=== PATIENT | female | born 1975 | race American Indian/Alaskan Native ===

== ENCOUNTER 2021-08-18 08:51 | Outpatient (CLI) | payer OTHER | END 2021-08-18 08:52 | disposition home or self-care (01) | LOC: MAMMO 08:51 | PROVIDERS: ATTEND Internal Medicine | DX: Z12.31 Encounter for screening mammogram for malignant neoplasm of breast (principal) | CPT/HCPCS: 77067 ==

== ENCOUNTER 2021-09-25 07:06 | Outpatient (CLI) | payer OTHER ==
--- NOTE | 2021-09-25 08:07 | Ultrasound Report ---
ULTRASOUND BREAST BILATERAL LIMITED, 09/25/2021 CLINICAL INFORMATION / INDICATION: R92.8. Follow-up of bilateral breast nodules seen on recent screen ing mammogram. TECHNIQUE: Targeted ultrasound evaluation was performed of the area of interest. COMPARISON: Screening mammogram dated 08/18/2021. FINDINGS: Right breast: In the 3:00 position 9 cm from the nipple is a parallel circumscribed hypoechoic nodule versus complicated cyst that is of similar echogenicity as the surrounding breast parenchyma without internal vascularity, measuring up to 4.4 mm. No other significant abnormality is seen. Left breast: In the 2:00 position 5 cm from the nipple is a simple cyst measuring up to 9 mm. In the 2:00 position 6 cm from the nipple is a complicated cyst with angular margins measuring up to 5.7 mm. No other significant abnormality. IMPRESSION: 1. 3:00 right breast hypoechoic nodule versus complicated cyst, correlating with the recently describ ed nodule seen mammographically. Reevaluation with a limited right breast ultrasound in 6 months is r ecommended. 2. 2 cysts in the 2:00 left breast, one appearing simple and the other appearing complicated as descr ibed above. Reevaluation of the corticated cyst with a limited left breast ultrasound in 6 months is recommended. Follow up recommendation: Ultrasound BI-RADS Category 3: PROBABLY BENIGN. Followup in 6 months. A normal or "negative" report should not preclude biopsy or follow-up of a clinically suspicious find ing. Signer Name: Carlos Roblero MD Signed: 09/25/2021 8:03 AM Workstation Name: [employer]
== END 2021-09-25 07:07 | disposition home or self-care (01) ==
LOC: US 07:06
PROVIDERS: ATTEND Internal Medicine
DX: N63.15 Unspecified lump in the right breast, overlapping quadrants (principal); N60.02 Solitary cyst of left breast